=== PATIENT | female | born 1950 | race Caucasian/White ===

== ENCOUNTER → 2024-10-05 | Outpatient (CLI) | payer MEDICARE ==
--- NOTE | 2024-10-05 13:05 | MM ---
Reason for Exam: Clinical finding. Last mammogram was performed 17 year(s) and 10 month(s) ago. Patient History: Menarche at age 14. First Full-Term at age 20. Postmenopausal. Estrogen for 1 year, 6 months. Progesterone for 1 year, 6 months. 11/29/1998, Benign Excisional Biopsy on the left side. Risk Values: Maria De Jesus 5 year model risk: 1.5%. NCI Lifetime model risk: 4.1%. Tissue Density: The breasts are almost entirely fatty. Findings: Analyzed By CAD. There is a tiny less than 5 mm circumscribed low-density nodule centrally located in the left breast atrium to middle depth suggestive of a tiny benign cyst. Stability can be confirmed in 6 months time. Otherwise, couple benign round calcifications are present on the left. No suspicious microcalcification or other discrete abnormality is seen. Overall Assessment: Probably benign, BI-RAD 3 Management: Diagnostic Mammogram of the left breast in 6 months. Also, further clinical management of patient's left breast pain. Results were given to the patient verbally at the time of exam. Patient should continue monthly self-breast exams. A clinical breast exam by your physician is recommended on an annual basis. This exam should not preclude additional follow-up of suspicious palpable abnormalities. Note on Maria De Jesus scores and lifetime risk: 1. A Maria De Jesus score greater than 3% is considered moderate risk. If this is the case, consider specialist referral to assess eligibility for a risk reducing agent. 2. If overall lifetime risk for the development of breast cancer is 20% or higher, the patient may qualify for future screening with alternating mammogram and breast MRI. [facility], , 10/05/2024 1:01 PM. Electronically signed and approved by: Berny Keith M.D. Radiologist
== END | disposition home or self-care (01) ==
LOC: RADMAMWWP 12:21
PROVIDERS: ATTEND Family Medicine
DX: R92.313 Mammographic fatty tissue density, bilateral breasts (principal); Z78.0 Asymptomatic menopausal state
CPT/HCPCS: 77066; G0279; 77062